=== PATIENT | male | born 1955 | race Caucasian/White ===

== ENCOUNTER 2016-10-19 16:51 | Emergency (ER) | payer BC ==
[~2016-10-19] VITALS: Ht 177.8 cm; Wt 102.1 kg
[~2016-10-19 16:51] MED LIST: FINA5TAB40 PO; HYDR-2164 PO; [UNRECOGNIZED DRUG - CODE]
--- OUTSIDE RECORDS SUMMARY | 2016-10-19 16:58 | XMS REPORT | Referral Summary ---
Author Author [facility] Organization [facility] Address Unknown Phone Unavailable Care Team Providers Care Temporary Data Entry Clerk Name Role Phone Kendall Gonzalez Primary Care Physician [phone] Encounter Date(s): 09/01/15 - 09/01/15 [facility] [address] [place] [address]- Discharge Diagnosis: Bilateral sensorineural hearing loss Discharge Disposition: 01-Home or Self Care Attending Physician: Garcia Yadav MD Admitting Physician: Sonali Jay Referring Physician: Иван Gonzalez MD Vital Signs No data available for this section Problem List Condition Effective Dates Status Health Status Informant Ear Resolved infection(Confirmed) Hearing Active loss(Confirmed) High Resolved cholesterol(Confirme d) Hyperlipidemia(Confi Resolved rmed) Hypertension(Confirm Resolved ed) Kidney Resolved disease/stones(Confi rmed) Enlarged Active prostate(Confirmed) Migraine Resolved headache(Confirmed) Obesity(Confirmed) Active patient Chronic Active insomnia(Confirmed) Pneumonia(Confirmed) Resolved Prostate Resolved cancer(Confirmed) Elevated Active PSA(Confirmed) Seizure Resolved disorder(Confirmed) Skin Resolved problem(Confirmed) Snoring(Confirmed) Active Adjustment Active insomnia(Confirmed) Allergies, Adverse Reactions, Alerts No Known Allergies Medications aspirin 325 mg, Oral, Daily, 0 Refill(s) Start Date: 12/08/13 Status: Ordered Fish Oil 1,000 mg, Oral, Daily, 0 Refill(s) Start Date: 12/08/13 Status: Ordered hydrochlorothiazide 25 mg oral tablet 25 mg 1 tabs, Oral, Daily, # 90 tabs, 2 Refill(s), Pharmacy: [facility] # [id number], 1 tabs Oral Daily,x90 days Start Date: 07/07/15 Stop Date: 04/02/16 Status: Ordered lisinopril 10 mg oral tablet 10 mg 1 tabs, Oral, Daily, # 90 tabs, 2 Refill(s), Pharmacy: [facility] # [id number], 1 tabs Oral Daily,x90 days Start Date: 07/07/15 Stop Date: 04/02/16 Status: Ordered Metamucil Original Texture Regular 1.7 g, Oral, Daily, 0 Refill(s) Start Date: 12/09/13 Status: Ordered multivitamin 1 tabs, Oral, Daily, 0 Refill(s) Start Date: 12/08/13 Status: Ordered Viagra 100 mg oral tablet 1 tabs, Oral, Daily, as needed for erectile dysfunction, 0 Refill(s) Start Date: 12/08/13 Status: Ordered Results No data available for this section Immunizations Vaccine Date Refusal Reason tetanus/diphth/pertuss (Tdap) adult/adol 08/26/06 influenza virus vaccine, inactivated1 03/31/15 influenza virus vaccine, live 04/26/13 influenza virus vaccine, live 05/06/12 pneumococcal 23-polyvalent vaccine 08/26/06 1Location History: [facility] Procedures Procedure Date Related Diagnosis Body Site Colonoscopy -1 08/16/13 Hemorrhoid operation - banding 08/16/13 Colonoscopy 07/03/09 Biopsy of prostate - transrectal needle 10/24/06 Cystoscopy 10/24/06 1Rectal bleeding Internal hemorrhoids Social History Social History Type Response Smoking Status Never smoker Assessment and Plan No data available for this section
--- OUTSIDE RECORDS SUMMARY | 2016-10-19 16:58 | XMS REPORT | Referral Summary ---
Author Author [facility] Organization [facility] Address Unknown Phone Unavailable Care Team Providers Care Stereo Operator Name Role Phone Kendall Gonzlaez Primary Care Physician [phone] Encounter VC Date(s): 12/05/14 - 12/05/14 [facility] [address] [place] [id number] Discharge Disposition: 01-Home or Self Care Attending Physician: Иван Gonzalez MD Admitting Physician: Иван Gonzalez MD Vital Signs Most recent to 1 oldest [Reference Range]: Blood Pressure 140/100 mmHg [90-140/60-90 mmHg] (12/05/14 8:05 AM) Problem List Condition Effective Dates Status Health Status Informant Ear Resolved infection(Confirmed) Hearing Active loss(Confirmed) High Resolved cholesterol(Confirme d) Hyperlipidemia(Confi Resolved rmed) Hypertension(Confirm Resolved ed) Kidney Resolved disease/stones(Confi rmed) Enlarged Active prostate(Confirmed) Migraine Resolved headache(Confirmed) Obesity(Confirmed) Active patient Pneumonia(Confirmed) Resolved Prostate Resolved cancer(Confirmed) Elevated Active PSA(Confirmed) Seizure Resolved disorder(Confirmed) Skin Resolved problem(Confirmed) Adjustment Active insomnia(Confirmed) Allergies, Adverse Reactions, Alerts No Known Allergies Medications aspirin 325 mg, Oral, Daily, 0 Refill(s) Start Date: 12/08/13 Status: Ordered Fish Oil 1,000 mg, Oral, Daily, 0 Refill(s) Start Date: 12/08/13 Status: Ordered hydrochlorothiazide 25 mg oral tablet See Instructions, TAKE ONE TABLET BY MOUTH DAILY NEEDS APPT PRIOR TO ADDITIONAL REFILLS, # 90 tabs, 0 Refill(s), Pharmacy: [facility] #[id number], TAKE ONE TABLET BY MOUTH DAILY; NEEDS APPT PRIOR TO ADDITIONAL REFILLS Start Date: 10/15/15 Status: Ordered lisinopril 10 mg oral tablet 10 mg 1 tabs, Oral, Daily, # 90 tabs, 3 Refill(s), Pharmacy: [facility] # [id number], 1 tabs Oral Daily,x90 days Start Date: 12/05/14 Stop Date: 11/30/15 Status: Ordered Metamucil Original Texture Regular 1.7 g, Oral, Daily, 0 Refill(s) Start Date: 12/09/13 Status: Ordered multivitamin 1 tabs, Oral, Daily, 0 Refill(s) Start Date: 12/08/13 Status: Ordered Viagra 100 mg oral tablet 1 tabs, Oral, Daily, as needed for erectile dysfunction, 0 Refill(s) Start Date: 12/08/13 Status: Ordered Results Hematology Most recent to 1 oldest [Reference Range]: WBC [4.8-10.8 6.9 10*3/uL 10*3/uL] (12/05/14 8:50 AM) RBC [4.60-6.20 5.05 10*6/uL 10*6/uL] (12/05/14 8:50 AM) Hgb [14.0-18.0 15.6 gm/dL gm/dL] (12/05/14 8:50 AM) Hct [42.0-52.0 %] 43.7 % (12/05/14 8:50 AM) MCV [82.0-99.0 fL] 86.5 fL (12/05/14 8:50 AM) MCH [27.0-32.0 pg] 30.9 pg (12/05/14 8:50 AM) MCHC [32.0-36.0 35.7 gm/dL gm/dL] (12/05/14 8:50 AM) RDW [11.5-14.5 %] 12.7 % (12/05/14 8:50 AM) Platelet [150-400 186 10*3/uL 10*3/uL] (12/05/14 8:50 AM) MPV [8.8-14.8 fL] 11.4 fL (12/05/14 8:50 AM) Immature 0.6 % Granulocytes (12/05/14 8:50 AM) [0.0-1.0 %] Neutrophils [51-75 40 % %] *LOW* (12/05/14 8:50 AM) Lymphocytes [20-46 45 % %] (12/05/14 8:50 AM) Monocytes [4-11 %] 10 % (12/05/14 8:50 AM) Eosinophils [0-4 %] 4 % (12/05/14 8:50 AM) Basophils [0-2 %] 0 % (12/05/14 8:50 AM) Neutro Absolute 2.80 10*3 [1.90-7.00 10*3] (12/05/14 8:50 AM) Lymph Absolute 3.10 10*3 [0.80-3.30 10*3] (12/05/14 8:50 AM) [place] Absolute 0.72 10*3 [0.30-1.00 10*3] (12/05/14 8:50 AM) Eos Absolute 0.25 10*3 [0.00-0.50 10*3] (12/05/14 8:50 AM) Baso Absolute 0.03 10*3 [0.00-0.20 10*3] (12/05/14 8:50 AM) Chemistry Most recent to 1 oldest [Reference Range]: Sodium Lvl [135-144 141 mEq/L mEq/L] (12/05/14 8:50 AM) Potassium Lvl 4.3 mEq/L [3.5-5.2 mEq/L] (12/05/14 8:50 AM) Chloride [99-111 104 mEq/L mEq/L] (12/05/14 8:50 AM) CO2 [23-31 mEq/L] 28 mEq/L (12/05/14 8:50 AM) AGAP [3-20] 9 (12/05/14 8:50 AM) BUN [8-26 mg/dL] 20 mg/dL (12/05/14 8:50 AM) Glucose Lvl [70-99 81 mg/dL mg/dL] (12/05/14 8:50 AM) Creatinine Lvl 0.97 mg/dL [0.72-1.25 mg/dL] (12/05/14 8:50 AM) eGFR [>60 mL/min] >60 mL/min 1 (12/05/14 8:50 AM) Calcium Lvl 10.3 mg/dL [8.9-10.5 mg/dL] (12/05/14 8:50 AM) Albumin Lvl [3.5-5.0 4.4 gm/dL gm/dL] (12/05/14 8:50 AM) Total Protein 7.2 gm/dL [6.4-8.3 gm/dL] (12/05/14 8:50 AM) Globulin [1.8-4.0 2.8 gm/dL gm/dL] (12/05/14 8:50 AM) ALT [0-55 U/L] 30 U/L (12/05/14 8:50 AM) AST [5-34 U/L] 28 U/L (12/05/14 8:50 AM) Alk Phos [40-150 67 U/L U/L] (12/05/14 8:50 AM) Bili Total [0.2-1.2 0.8 mg/dL mg/dL] (12/05/14 8:50 AM) PSA (wihout Reflex <0.1 ng/mL 2 Free) [0.0-3.5 (12/05/14 8:50 AM) ng/mL] Hgb A1c [4.1-5.6 %] 5.5 % (12/05/14 8:50 AM) eAvg Glucose 111.2 mg/dL (12/05/14 8:50 AM) 1Result Comment: Multiply eGFR results by 1.21 for race. 2Result Comment: AUA PSA Best Practice Guidelines: Age-Adjusted PSA Values by Ethnic Group Age Range Asians - Caucasians Americans 40-49 0-2.0 0-2.0 0-2.5 50-59 0-3.0 0-4.0 0-3.5 60-69 0-4.0 0-4.5 0-4.5 70-79 0-5.0 0-5.5 0-6.5 Immunizations Vaccine Date Refusal Reason tetanus/diphth/pertuss (Tdap) adult/adol 08/26/06 influenza virus vaccine, inactivated1 03/31/15 influenza virus vaccine, live 04/26/13 influenza virus vaccine, live 05/06/12 pneumococcal 23-polyvalent vaccine 08/26/06 1Location History: [facility] Procedures Procedure Date Related Diagnosis Body Site Collection of venous blood by venipuncture 12/05/14 Colonoscopy -1 08/16/13 Hemorrhoid operation - banding 08/16/13 Colonoscopy 07/03/09 Biopsy of prostate - transrectal needle 10/24/06 Cystoscopy 10/24/06 1Rectal bleeding Internal hemorrhoids Social History Social History Type Response Smoking Status Never smoker Assessment and Plan Extracted from: Title: Ambulatory Patient Education Author: Иван Gonzalez MD Date: Family Medicine Arterial Hypertension Arterial hypertension (high blood pressure ) is a condition of elevated pressure in your blood vessels. Hypertension over a long period of time is a risk factor for strokes, heart attacks, and heart failure. It is also the leading cause of kidney (renal ) failure. CAUSES In Adults -- Over 90% of all hypertension has no known cause. This is called essential or primary hypertension. In the other 10% of people with hypertension, the increase in blood pressure is caused by another disorder. This is called secondary hypertension . Important causes of secondary hypertension are: Heavy alcohol use. Obstructive sleep apnea. Hyperaldosterosim (Conn's syndrome). Steroid use. Chronic kidney failure. Hyperparathyroidism. Medications. Renal artery stenosis. Pheochromocytoma. [place]'s disease. Coarctation of the aorta. Scleroderma renal crisis. Licorice (in excessive amounts). Drugs (cocaine, methamphetamine). Your caregiver can explain any items above that apply to you. In Children -- Secondary hypertension is more common and should always be considered. -- Few women of childbearing age have high blood pressure. However, up to 10% of them develop hypertension of . Generally, this will not harm the woman. It may be a sign of 3 complications of : preeclampsia, HELLP syndrome, and eclampsia. Follow up and control with medication is necessary. SYMPTOMS This condition normally does not produce any noticeable symptoms. It is usually found during a routine exam. Malignant hypertension is a late problem of high blood pressure. It may have the following symptoms: Headaches. Blurred vision. End-organ damage (this means your kidneys, heart, lungs, and other organs are being damaged). Stressful situations can increase the blood pressure. If a person with normal blood pressure has their blood pressure go up while being seen by their caregiver, this is often termed "white coat hypertension." Its importance is not known. It may be related with eventually developing hypertension or complications of hypertension. Hypertension is often confused with mental tension, stress, and anxiety. DIAGNOSIS The diagnosis is made by 3 separate blood pressure measurements. They are taken at least 1 week apart from each other. If there is organ damage from hypertension, the diagnosis may be made without repeat measurements. Hypertension is usually identified by having blood pressure readings: Above 140/90 mmHg measured in both arms, at 3 separate times, over a couple weeks. Over 130/80 mmHg should be considered a risk factor and may require treatment in patients with diabetes. Blood pressure readings over 120/80 mmHg are called "pre-hypertension" even in non-diabetic patients. To get a true blood pressure measurement, use the following guidelines. Be aware of the factors that can alter blood pressure readings. Take measurements at least 1 hour after caffeine. Take measurements 30 minutes after smoking and without any stress. This is another reason to quit smoking it raises your blood pressure. Use a proper cuff size. Ask your caregiver if you are not sure about your cuff size. Most home blood pressure cuffs are automatic. They will measure systolic and diastolic pressures. The systolic pressure is the pressure reading at the start of sounds. Diastolic pressure is the pressure at which the sounds disappear. If you are elderly, measure pressures in multiple postures. Try sitting, lying or standing. Sit at rest for a minimum of 5 minutes before taking measurements. You should not be on any medications like decongestants. These are found in many cold medications. Record your blood pressure readings and review them with your caregiver. If you have hypertension: Your caregiver may do tests to be sure you do not have secondary hypertension (see "causes" above). Your caregiver may also look for signs of metabolic syndrome. This is also called Syndrome X or Insulin Resistance Syndrome. You may have this syndrome if you have type 2 diabetes, abdominal obesity, and abnormal blood lipids in addition to hypertension. Your caregiver will take your medical and family history and perform a physical exam. Diagnostic tests may include blood tests (for glucose, cholesterol, potassium, and kidney function), a urinalysis, or an EKG. Other tests may also be necessary depending on your condition. PREVENTION There are important lifestyle issues that you can adopt to reduce your chance of developing hypertension: Maintain a normal weight. Limit the amount of salt (sodium ) in your diet. Exercise often. Limit alcohol intake. Get enough potassium in your diet. Discuss specific advice with your caregiver. Follow a DASH diet (dietary approaches to stop hypertension). This diet is rich in fruits, vegetables, and low-fat dairy products, and avoids certain fats. PROGNOSIS Essential hypertension cannot be cured. Lifestyle changes and medical treatment can lower blood pressure and reduce complications. The prognosis of secondary hypertension depends on the underlying cause. Many people whose hypertension is controlled with medicine or lifestyle changes can live a normal, healthy life. RISKS AND COMPLICATIONS While high blood pressure alone is not an illness, it often requires treatment due to its short- and long-term effects on many organs. Hypertension increases your risk for: CVAs or strokes (cerebrovascular accident ). Heart failure due to chronically high blood pressure (hypertensive cardiomyopathy ). Heart attack (myocardial infarction ). Damage to the retina (hypertensive retinopathy ). Kidney failure (hypertensive nephropathy ). Your caregiver can explain list items above that apply to you. Treatment of hypertension can significantly reduce the risk of complications. TREATMENT For overweight patients, weight loss and regular exercise are recommended. Physical fitness lowers blood pressure. Mild hypertension is usually treated with diet and exercise. A diet rich in fruits and vegetables, fat-free dairy products, and foods low in fat and salt (sodium ) can help lower blood pressure. Decreasing salt intake decreases blood pressure in a 1/3 of people. Stop smoking if you are a smoker. The steps above are highly effective in reducing blood pressure. While these actions are easy to suggest, they are difficult to achieve. Most patients with moderate or severe hypertension end up requiring medications to bring their blood pressure down to a normal level. There are several classes of medications for treatment. Blood pressure pills (antihypertensives ) will lower blood pressure by their different actions. Lowering the blood pressure by 10 mmHg may decrease the risk of complications by as much as 25%. The goal of treatment is effective blood pressure control. This will reduce your risk for complications. Your caregiver will help you determine the best treatment for you according to your lifestyle. What is excellent treatment for one person, may not be for you. HOME CARE INSTRUCTIONS Do not smoke. Follow the lifestyle changes outlined in the "Prevention" section. If you are on medications, follow the directions carefully. Blood pressure medications must be taken as prescribed. Skipping doses reduces their benefit. It also puts you at risk for problems. Follow up with your caregiver, as directed. If you are asked to monitor your blood pressure at home, follow the guidelines in the "Diagnosis" section above. SEEK MEDICAL CARE IF: You think you are having medication side effects. You have recurrent headaches or lightheadedness. You have swelling in your ankles. You have trouble with your vision. SEEK IMMEDIATE MEDICAL CARE IF: You have sudden onset of chest pain or pressure, difficulty breathing, or other symptoms of a heart attack. You have a severe headache. You have symptoms of a stroke (such as sudden weakness, difficulty speaking , difficulty walking). MAKE SURE YOU: Understand these instructions. Will watch your condition. Will get help right away if you are not doing well or get worse. Document Released: 06/02/2006 Document Revised: 08/24/2012 Document Reviewed: ExitCare Patient Information 2014 [employer]. No follow up information was provided. Extracted from: Title: Office Visit Note Author: Иван Gonzalez MD Date: 12/05/14 Assessment/Plan Adjustment insomnia This issue is stable and appropriate refills, lab, and f/ u have been discussed. Refillambien. Hearing loss To ENT forevaluation of hearing loss. High blood sugar This issue is stable and appropriate refills, lab, and f/u have been discussed. Ordered: CBC w/ Differential Comprehensive Metabolic Panel Hemoglobin A1c Hyperlipidemia This issue is stable and appropriate refills, lab, and f/u have been discussed. Hypertension This issue is stable and appropriate refills, lab, and f/u have been discussed. The patient reports their blood pressure has been stable at home and is not having any significant or related problems. There has been no chest pain, chest pressure, soa/sykes. He may have one year of refills but will need appts for anything further. Prostate cancer This issue is stable and appropriate refills, lab, and f/u have been discussed. PSAs to yearly provided no symptoms/issues develop. He has been recurrence free for five years now. Ordered: Prostate Specific Antigen Orders: lisinopril, 10 mg 1 tabs, Oral, Daily, # 90 tabs, 3 Refill(s), Pharmacy: [facility] #[id number], 1 tabs Oral Daily,x90 days zolpidem, 10 mg 1 tabs, Oral, Bedtime (once a day), as needed for sleep, s. renetta, X 30 days, # 30 tabs, 0 Refill(s)
--- OUTSIDE RECORDS SUMMARY | 2016-10-19 16:58 | XMS REPORT | Referral Summary ---
Author Author [facility] Organization [facility] Address Unknown Phone Unavailable Care Team Providers Care Torch Burner Name Role Phone Kendall Gonzalez Primary Care Physician [phone] Encounter VC Date(s): 12/05/14 - 12/05/14 [facility] [address] [place] [id number] Discharge Disposition: 01-Home or Self Care Attending [...] REFILLS, # 90 tabs, 0 Refill(s), Pharmacy: [facility] #[id number], TAKE ONE TABLET BY MOUTH DAILY; NEEDS APPT PRIOR TO ADDITIONAL REFILLS Start Date: 10/15/15 Status: Ordered lisinopril 10 mg oral tablet 10 mg 1 tabs, Oral, Daily, # 90 tabs, 3 Refill(s), Pharmacy: [facility] # [id number], 1 tabs Oral Daily,x90 days Start Date: [...] 3.10 10*3 [0.80-3.30 10*3] (12/05/14 8:50 AM) [place] Absolute 0.72 10*3 [0.30-1.00 10*3] (12/05/14 8:50 [...] failure. Hyperparathyroidism. Medications. Renal artery stenosis. Pheochromocytoma. [place]'s disease. Coarctation of the aorta. Scleroderma renal [...] 08/24/2012 Document Reviewed: ExitCare Patient Information 2014 [employer]. No follow up information was provided. Extracted [...] Daily, # 90 tabs, 3 Refill(s), Pharmacy: [facility] #[id number], 1 tabs Oral Daily,x90 days zolpidem, 10 mg 1 tabs, Oral, Bedtime (once a day), as needed for sleep, s. renetta, X 30 days, # 30 tabs, 0 Refill(s)
--- OUTSIDE RECORDS SUMMARY | 2016-10-19 16:58 | XMS REPORT | Referral Summary ---
Author Author [facility] Organization [facility] Address Unknown Phone Unavailable Care Team Providers Care Grading Clerk Name Role Phone Kendall Gonzalez Primary Care Physician [phone] Encounter VC Date(s): 01/05/16 - 01/05/16 [facility] [address] [place] [address] Discharge Disposition: 01-Home or Self Care Attending Physician: Иван Gonzalez MD Admitting Physician: Иван Gonzalez MD Vital Signs Most recent to 1 oldest [Reference Range]: Blood Pressure 124/90 mmHg [90-140/60-90 mmHg] (01/05/16 8:22 AM) Problem List Condition Effective Dates Status Health Status Informant Ear Resolved infection(Confirmed) Hearing Active loss(Confirmed) High Resolved cholesterol(Confirme d) Hyperlipidemia(Confi Resolved rmed) Hypertension(Confirm Resolved ed) Kidney Resolved disease/stones(Confi rmed) Enlarged Active prostate(Confirmed) Migraine Resolved headache(Confirmed) Obesity(Confirmed) Active patient Erectile Active dysfunction(Confirme d) Chronic Active insomnia(Confirmed) Pneumonia(Confirmed) Resolved Prostate Resolved [...] 1 tabs, Oral, Daily, # 90 tabs, 1 Refill(s), Pharmacy: [facility] # [id number], 1 tabs Oral Daily,x90 days Start Date: 01/05/16 Stop Date: 1/18/17 Status: Ordered lisinopril 10 mg oral tablet 10 mg 1 tabs, Oral, Daily, # 90 tabs, 2 Refill(s), Pharmacy: [facility] # [id number], 1 tabs Oral Daily,x90 days Start Date: [...] to 1 oldest [Reference Range]: WBC [4.8-10.8 8.0 10*3/uL 10*3/uL] (01/05/16 8:45 AM) RBC [4.60-6.20] 5.12 (01/05/16 8:45 AM) Hgb [14.0-18.0 16.1 gm/dL gm/dL] (01/05/16 8:45 AM) Hct [42.0-52.0 %] 44.4 % (01/05/16 8:45 AM) MCV [82.0-99.0 fL] 86.7 fL (01/05/16 8:45 AM) MCH [27.0-32.0 pg] 31.4 pg (01/05/16 8:45 AM) MCHC [32.0-36.0 36.3 gm/dL gm/dL] *HI* (01/05/16 8:45 AM) RDW [11.5-14.5 %] 13.2 % (01/05/16 8:45 AM) Platelet [150-400 189 10*3/uL 10*3/uL] (01/05/16 8:45 AM) MPV [8.8-14.8 fL] 11.1 fL (01/05/16 8:45 AM) Immature 0.2 % Granulocytes (01/05/16 8:45 AM) [0.0-1.0 %] Neutrophils [51-75 45 % %] *LOW* (01/05/16 8:45 AM) Lymphocytes [20-46 42 % %] (01/05/16 8:45 AM) Monocytes [4-11 %] 9 % (01/05/16 8:45 AM) Eosinophils [0-4 %] 3 % (01/05/16 8:45 AM) Basophils [0-2 %] 0 % (01/05/16 8:45 AM) Neutro Absolute 3.60 10*3 [1.90-7.00 10*3] (01/05/16 8:45 AM) Lymph Absolute 3.39 10*3 [0.80-3.30 10*3] *HI* (01/05/16 8:45 AM) [place] Absolute 0.75 10*3 [0.30-1.00 10*3] (01/05/16 8:45 AM) Eos Absolute 0.27 10*3 [0.00-0.50 10*3] (01/05/16 8:45 AM) Baso Absolute 0.02 10*3 [0.00-0.20 10*3] (01/05/16 8:45 AM) Chemistry Most recent to 1 oldest [Reference Range]: Sodium Lvl [135-144 141 mEq/L mEq/L] (01/05/16 8:45 AM) Potassium Lvl 4.3 mEq/L [3.5-5.2 mEq/L] (01/05/16 8:45 AM) Chloride [99-111 106 mEq/L mEq/L] (01/05/16 8:45 AM) CO2 [23-31 mEq/L] 26 mEq/L (01/05/16 8:45 AM) AGAP [3-20] 9 (01/05/16 8:45 AM) BUN [8-26 mg/dL] 20 mg/dL (01/05/16 8:45 AM) Glucose Lvl [70-99 94 mg/dL mg/dL] (01/05/16 8:45 AM) Creatinine Lvl 1.06 mg/dL [0.72-1.25 mg/dL] (01/05/16 8:45 AM) eGFR [>60 mL/min] >60 mL/min 1 (01/05/16 8:45 AM) Calcium Lvl 9.6 mg/dL [8.9-10.5 mg/dL] (01/05/16 8:45 AM) Albumin Lvl [3.5-5.0 4.5 gm/dL gm/dL] (01/05/16 8:45 AM) Total Protein 7.0 gm/dL 2 [6.0-7.6 gm/dL] (01/05/16 8:45 AM) Globulin [1.8-4.0 2.5 gm/dL gm/dL] (01/05/16 8:45 AM) ALT [0-55 U/L] 26 U/L (01/05/16 8:45 AM) AST [5-34 U/L] 20 U/L (01/05/16 8:45 AM) Alk Phos [40-150 69 U/L U/L] (01/05/16 8:45 AM) Bili Total [0.2-1.2 0.8 mg/dL mg/dL] (01/05/16 8:45 AM) PSA (wihout Reflex <0.1 ng/mL 3 Free) [0.0-3.5 (01/05/16 8:45 AM) ng/mL] Chol [0-199 mg/dL] 193 mg/dL (01/05/16 8:45 AM) Trig [0-149 mg/dL] 214 mg/dL *HI* (01/05/16 8:45 AM) HDL [40-84 mg/dL] 40 mg/dL (01/05/16 8:45 AM) LDL [0-130 mg/dL] 110 mg/dL (01/05/16 8:45 AM) VLDL Cholesterol 43 mg/dL [0-28 mg/dL] *HI* (01/05/16 8:45 AM) Cardiac Risk 4.8 [0.0-5.7] (01/05/16 8:45 AM) Hgb A1c [4.1-5.6 %] 5.4 % (01/05/16 8:45 AM) eAvg Glucose 108.3 mg/dL (01/05/16 8:45 AM) 1Result Comment: Multiply eGFR results by 1.21 for race. 2Result Comment: Please note new reference range for adult Protein. 3Result Comment: AUA PSA Best Practice Guidelines: Age-Adjusted PSA Values by Ethnic Group Age Range Asians - Caucasians Americans 40-49 0-2.0 0-2.0 0-2.5 50-59 0-3.0 0-4.0 0-3.5 60-69 0-4.0 0-4.5 0-4.5 70-79 0-5.0 0-5.5 0-6.5 Urinalysis Most recent to 1 oldest [Reference Range]: UA Color Yellow (01/05/16 8:56 AM) UA Appear Clear (01/05/16 8:56 AM) UA pH [5.0-8.0] 7.0 (01/05/16 8:56 AM) UA Leuk Est Negative [Negative] (01/05/16 8:56 AM) UA Nitrite Negative [Negative] (01/05/16 8:56 AM) UA Protein Negative [Negative] (01/05/16 8:56 AM) UA Glucose Negative [Negative] (01/05/16 8:56 AM) UA Ketones Negative [Negative] (01/05/16 8:56 AM) UA Urobilinogen 0.2 mg/dL [<1.0 mg/dL] (01/05/16 8:56 AM) UA Bili [Negative] Negative (01/05/16 8:56 AM) UA Blood [Negative] Negative (01/05/16 8:56 AM) UA Spec Grav 1.026 [1.003-1.030] (01/05/16 8:56 AM) Type Voided (01/05/16 8:56 AM) Immunizations Vaccine Date Refusal Reason tetanus/diphth/pertuss (Tdap) adult/adol 08/26/06 influenza virus vaccine, inactivated1 03/31/15 influenza virus vaccine, live 04/26/13 influenza virus vaccine, live 05/06/12 pneumococcal 23-polyvalent vaccine 08/26/06 1Location History: [facility] Procedures Procedure Date Related Diagnosis Body Site Collection of venous blood by venipuncture 01/05/16 Colonoscopy -1 08/16/13 Hemorrhoid operation - banding 08/16/13 Colonoscopy 07/03/09 Biopsy of prostate - transrectal needle 10/24/06 Cystoscopy 10/24/06 1Rectal bleeding Internal hemorrhoids Social History Social History Type Response Smoking Status Never smoker Assessment and Plan Extracted from: Title: Ambulatory Patient Education Author: Иван Gonzalez MD Date: Family Medicine Cholesterol Cholesterol is a white, waxy, fat-like substance needed by your body in small amounts. The liver makes all the cholesterol you need. Cholesterol is carried from the liver by the blood through the blood vessels. Deposits of cholesterol ( plaque) may build up on blood vessel saha. These make the arteries narrower and stiffer. Cholesterol plaques increase the risk for heart attack and stroke. You cannot feel your cholesterol level even if it is very high. The only way to know it is high is with a blood test. Once you know your cholesterol levels, you should keep a record of the test results. Work with your health care provider to keep your levels in the desired range. WHAT DO THE RESULTS MEAN? Total cholesterol is a rough measure of all the cholesterol in your blood. LDL is the so-called bad cholesterol. This is the type that deposits cholesterol in the saha of the arteries. You want this level to be low. HDL is the good cholesterol because it cleans the arteries and carries the LDL away. You want this level to be high. Triglycerides are fat that the body can either burn for energy or store. High levels are closely linked to heart disease. WHAT ARE THE DESIRED LEVELS OF CHOLESTEROL? Total cholesterol below 200. LDL below 100 for people at risk, below 70 for those at very high risk. HDL above 50 is good, above 60 is best. Triglycerides below 150. HOW CAN I LOWER MY CHOLESTEROL? Diet. Follow your diet programs as directed by your health care provider. Choose fish or white meat chicken and turkey, roasted or baked. Limit fatty cuts of red meat, fried foods, and processed meats, such as sausage and lunch meats. Eat lots of fresh fruits and vegetables. Choose whole grains, beans, pasta, potatoes, and cereals. Use only small amounts of olive, corn, or canola oils. Avoid butter, mayonnaise, shortening, or palm kernel oils. Avoid foods with trans fats. Drink skim or nonfat milk and eat low-fat or nonfat yogurt and cheeses. Avoid whole milk, cream, ice cream, egg yolks, and full-fat cheeses. Healthy desserts include roderick food cake, dianna snaps, animal crackers, hard candy, popsicles, and low-fat or nonfat frozen yogurt. Avoid pastries, cakes, pies, and cookies. Exercise. Follow your exercise programs as directed by your health care provider. A regular program helps decrease LDL and raise HDL. A regular program helps with weight control. Do things that increase your activity level like gardening, walking, or taking the stairs. Ask your health care provider about how you can be more active in your daily life. Medicine. Take medicine only as directed by your health care provider. Medicine may be prescribed by your health care provider to help lower cholesterol and decrease the risk for heart disease. If you have several risk factors, you may need medicine even if your levels are normal. This information is not intended to replace advice given to you by your health care provider. Make sure you discuss any questions you have with your health care provider. Document Released: 02/25/2002 Document Revised: 06/23/2015 Document Reviewed: [facility] Patient Information 2016 [employer]. No follow up information was provided. Extracted from: Title: Office Visit Note Author: Иван Gonzalez MD Date: 01/05/16 Assessment/Plan Chronic insomnia This issue was reviewed, appears stable, and current therapy continued except as mentioned. Appropriate lab was reviewed from the most recent appropriate entry and lab was ordered if needed in the cpoe/nursing orders, and follow up recommended generally in 90 days and no later then six months. Erectile dysfunction This issue was reviewed, appears stable, and current therapy continued except as mentioned. Appropriate lab was reviewed from the most recent appropriate entry and lab was ordered if needed in the cpoe/nursing orders, and follow up recommended generally in 90 days and no later then six months. High cholesterol This issue was reviewed, appears stable, and current therapy continued except as mentioned. Appropriate lab was reviewed from the most recent appropriate entry and lab was ordered if needed in the cpoe/nursing orders, and follow up recommended generally in 90 days and no later then six months. Lab pending. Hypertension This issue was reviewed, appears stable, and current therapy continued except as mentioned. Appropriate lab was reviewed from the most recent appropriate entry and lab was ordered if needed in the cpoe/nursing orders, and follow up recommended generally in 90 days and no later then six months. The patient reports their blood pressure has been stable at home and is not having any significant or related problems. There has been no chest pain, chest pressure, soa/sykes. Obesity Diet and exercise as tolerated and feasible. Consider medication when interested. Prostate cancer The patient's issue is nearly or completely resolved. There is no further issues or testing desired by them at this time.
--- OUTSIDE RECORDS SUMMARY | 2016-10-19 16:58 | XMS REPORT | Referral Summary ---
Author Author [facility] Organization [facility] Address Unknown Phone Unavailable Care Team Providers Care Flight Crew Scheduler Name Role Phone Kendall Gonzalez Primary Care Physician [phone] Encounter VC Date(s): 12/05/14 - 12/05/14 [facility] [address] [place] [id number] Discharge Disposition: 01-Home or Self [...] REFILLS, # 90 tabs, 0 Refill(s), Pharmacy: [facility] #[id number], TAKE ONE TABLET BY MOUTH DAILY; NEEDS APPT PRIOR TO ADDITIONAL REFILLS Start Date: 10/15/15 Status: Ordered lisinopril 10 mg oral tablet 10 mg 1 tabs, Oral, Daily, # 90 tabs, 3 Refill(s), Pharmacy: [facility] # [id number], 1 tabs Oral Daily,x90 days Start Date: [...] 3.10 10*3 [0.80-3.30 10*3] (12/05/14 8:50 AM) [place] Absolute 0.72 10*3 [0.30-1.00 10*3] (12/05/14 8:50 [...] failure. Hyperparathyroidism. Medications. Renal artery stenosis. Pheochromocytoma. [place] Lion's disease. Coarctation of the aorta. Scleroderma renal [...] 08/24/2012 Document Reviewed: ExitCare Patient Information 2014 [employer] No follow up information was provided. Extracted [...] Daily, # 90 tabs, 3 Refill(s), Pharmacy: [facility] #[id number], 1 tabs Oral Daily,x90 days zolpidem, 10 mg 1 tabs, Oral, Bedtime (once a day), as needed for sleep, s. renetta, X 30 days, # 30 tabs, 0 Refill(s)
--- OUTSIDE RECORDS SUMMARY | 2016-10-19 16:58 | XMS REPORT | Referral Summary ---
Author Author [facility] Organization [facility] Address Unknown Phone Unavailable Care Team Providers Care Animal Caretaker Name Role Phone Kendall Gonzalez Primary Care Physician [phone] Encounter VC Date(s): 07/07/15 - 07/07/15 [facility] [address] [place] [id number] Discharge Disposition: 01-Home or Self Care Attending Physician: Иван Gonzalez MD Admitting Physician: Иван Gonzalez MD Vital Signs Most recent to 1 oldest [Reference Range]: Blood Pressure 130/90 mmHg [90-140/60-90 mmHg] (07/07/15 9:02 AM) Problem List Condition Effective Dates Status [...] Adverse Reactions, Alerts No Known Allergies Medications Ambien CR 12.5 mg oral tablet, extended release 12.5 mg 1 tabs, Oral, Bedtime (once a day), as needed for sleep, SMariusz Flores, X 30 days, # 30 tabs, 0 Refill(s) Start Date: 07/07/15 Stop Date: 08/06/15 Status: Ordered aspirin 325 mg, Oral, Daily, 0 Refill(s) Start Date: 12/08/13 Status: Ordered Fish Oil 1,000 mg, Oral, Daily, 0 Refill(s) Start Date: 12/08/13 Status: Ordered hydrochlorothiazide 25 mg oral tablet 25 mg 1 tabs, Oral, Daily, # 90 tabs, 2 Refill(s), Pharmacy: [facility] # [id number], 1 tabs Oral Daily,x90 days Start Date: 07/07/15 Stop Date: 04/02/16 Status: Ordered lisinopril 10 mg oral tablet 10 mg 1 tabs, Oral, Daily, # 90 tabs, 2 Refill(s), Pharmacy: [facility] # [id number], 1 tabs Oral Daily,x90 days Start Date: [...] Patient Education Author: Иван Gonzalez MD Date: Cardiovascular Dyslipidemia Dyslipidemia is an imbalance of the lipids in your blood. Lipids are waxy, fat- like proteins that your body needs in small amounts. Dyslipidemia often involves the lipids cholesterol or triglycerides. Common forms of dyslipidemia are: High levels of bad cholesterol (LDL cholesterol). LDL cholesterol is the type of cholesterol that causes heart disease. Low levels of good cholesterol (HDL cholesterol). HDL cholesterol is the type of cholesterol that helps protect against heart disease. High levels of triglycerides. Triglycerides are a fatty substance in the blood linked to a buildup of plaque on your arteries. RISK FACTORS Increased age. Having a family history of high cholesterol. Certain medicines, including control pills, diuretics, beta-blockers , and some medicines for depression. Smoking. Eating a high-fat diet. Being overweight. Medical conditions such as diabetes, polycystic ovary syndrome, , kidney disease, and hypothyroidism. Lack of regular exercise. SIGNS AND SYMPTOMS There are no signs or symptoms with dyslipidemia. DIAGNOSIS A simple blood test called a fasting blood test can be done to determine your level of: Total cholesterol. This is the combined number of LDL cholesterol and HDL cholesterol. A healthy number is lower than 200. LDL cholesterol. The goal number for LDL cholesterol is different for each person depending on risk factors. Ask your health care provider what your LDL cholesterol number should be. HDL cholesterol. A healthy level of HDL cholesterol is 60 or higher. A number lower than 40 for men or 50 for women is a danger sign. Triglycerides. A healthy triglyceride number is less than 150. TREATMENT Dyslipidemia is a treatable condition. Your health care provider will advise you on what type of treatment is best based on your age, your test results, and current guidelines. Treatment may include: Dietary changes. A dietitian can help you create a meal plan. You may need to: Eat more foods that contain omega-3s, such as salmon and other fish. Replace saturated fats and trans fats in your diet with healthy fats such as nuts, seeds, avocados, olive oil, and canola oil. Regular exercise. This can help lower your LDL cholesterol, raise your HDL cholesterol, and help with weight management. Check with your health care provider before beginning an exercise program. Most people should participate in 30 minutes of brisk exercise 5 days a week. Quitting smoking. Medicines to lower LDL cholesterol and triglycerides. Your health care provider will monitor your lipid levels with regular blood tests. HOME CARE INSTRUCTIONS Eat a healthy diet. Follow any diet instructions if they were given to you by your health care provider. Maintain a healthy weight. Exercise regularly based on the recommendations of your health care provider. Do not use any tobacco products, including cigarettes, chewing tobacco, or electronic cigarettes. Take medicines only as directed by your health care provider. Keep all follow-up visits as directed by your health care provider. SEEK MEDICAL CARE IF: You are having possible side effects from your medicines. Document Released: 06/07/2014 Document Revised: 10/17/2014 Document Reviewed: ExitCare Patient Information 2015 [employer]. This information is not intended to replace advice given to you by your health care provider. Make sure you discuss any questions you have with your health care provider. No follow up information was provided. Extracted from: Title: Office Visit Note Author: Иван Gonzalez MD Date: 07/07/15 Assessment/Plan Acute URI Meds offered and declined. Chronic insomnia Ambien cr 12.5mg po qhs prn. He may have 30 every 30 days. A work/school note was offered and deferred by the patient. Hyperlipidemia This issue was reviewed, appears stable, and [...] been no chest pain, chest pressure, soa/sykes. Recheck in six months. Migraine headache This issue was reviewed, appears stable, and current therapy continued except as mentioned. Appropriate lab was reviewed from the most recent appropriate entry and lab was ordered if needed in the cpoe/nursing orders, and follow up recommended generally in 90 days and no later then six months. Prostate cancer The patient's issue is nearly or completely resolved. There is no further issues or testing desired by them at this time. Lab reviewed and stable. Discussed rechecking and declined until next visit. No c/os. Seizure disorder The patient's issue is nearly or completely resolved. There is no further issues or testing desired by them at this time. Snoring Stable. No evidence of apnea at this time. Orders: hydrochlorothiazide, 25 mg 1 tabs, Oral, Daily, # 90 tabs, 2 Refill(s) , Pharmacy: [facility] #[id number], 1 tabs Oral Daily,x90 days lisinopril, 10 mg 1 tabs, Oral, Daily, # 90 tabs, 2 Refill(s), Pharmacy: [facility] #[id number], 1 tabs Oral Daily,x90 days zolpidem, 12.5 mg 1 tabs, Oral, Bedtime (once a day), as needed for sleep, [facility], X 30 days, # 30 tabs, 0 Refill(s)
--- OUTSIDE RECORDS SUMMARY | 2016-10-19 16:58 | XMS REPORT | Continuity of Care Document ---
Author Author Jorge Luis Ovalle MD [facility] Address [address] [place] [address] Phone Care Team Providers Care Mine Inspector Federal Name Role Phone Иван Gonzalez PP Unavailable Payers Payer name Insurance type Covered constitution party ID Authorization(s) Unknown Problems Condition Effective Dates (start - stop) Clinical Status Internal hemorrhoids with other complication - *Symptomatic Hypertension, Benign - *Poor control Other and unspecified hyperlipidemia - *Chronic Malignant Neoplasm, Prostate - *Controlled OTHER ABNORMAL GLUCOSE - *Chronic Hypertension, Benign - *Chronic OTHER ABNORMAL GLUCOSE - *Chronic Insomnia, Other - *Chronic Other and unspecified hyperlipidemia - *Chronic Overweight - *Chronic Malignant Neoplasm, Prostate - *Resolved Erectile Dysfunction - *Chronic Hypertension, benign - *Chronic Hyperlipidemia, NOS - *Chronic Insomnia - *Chronic Malignant neoplasm of prostate - *Controlled Ventral hernia - *Chronic Hemorrhage of rectum and anus - *Controlled Other and unspecified hyperlipidemia - *Chronic Other abnormal blood chemistry - *Acute Hypertension, Benign - *Chronic Malignant Neoplasm, Prostate - *Chronic Abdominal pain, epigastric - *Resolved Internal hemorrhoids without mention of complication - *Chronic Diastasis of muscle - *Chronic Hemorrhage of rectum and anus - *Chronic Abnormal blood chemistry - *Chronic Hypertension, benign - *Chronic Insomnia - *Chronic Malignant neoplasm of prostate - *Chronic Erectile dysfunction - *Chronic Plantar fascial fibromatosis - *Chronic Hypertension, Benign - *Chronic Family History Family Member Diagnosis Age At Onset Status Mother (Unknown) Diabetes Yes Father (Unknown) Hypertension Yes Social History Social History Element Description Quantity Unknown Allergies, Adverse Reactions, Alerts Substance Reaction Severity Status Unknown Medications Medication Instructions Dosage Effective Dates (start - stop) Status Viagra 100 mg tablet Take 1 tablet by mouth as needed. - Active aspirin 325 mg tablet take 1 tablet (325MG) by oral route every day 325 MG - Active Fish Oil 1,000 mg capsule take 1 by Oral route every day 0 - Active multivitamin tablet take 1 by Oral route every day 0 - Active Ambien 10 mg tablet Take 1 tablet by mouth at bedtime. - Active hydrochlorothiazide 25 mg tablet Take 1 tablet by mouth every day. 2012 - Active Suprep 17.5 gram-3.13 gram-1.6 gram oral solution Take as directed 2013 - Active lisinopril 20 mg tablet take 1 tablet (20MG) by oral route every day 20 MG - Active Immunizations Vaccine Date Status Comments flu (split) (3 yrs or older) completed - Completed reason: public agency flu (split) (3 yrs or older) completed - Completed reason: public agency Results Test Name Date and Time Measure Units Reference Range Abnormal Flag Comments Unknown Vital Signs Date / Time: Height Weight Pulse Rate Blood Pressure Temperature /08:40:00 70.00 in 213.85 lbs 112/86 mm[Hg] Procedures Procedure Date Unknown Encounters Encounter Location Date Patient Visit [facility] Patient Visit Conversion Patient Visit [facility] Patient Visit [facility] Patient Visit [facility] Patient Visit [facility] Surg Patient Visit [facility] Patient Visit [facility] Patient Visit [facility] Patient Visit [facility] Patient Visit [facility] Patient Visit [facility] Advance Directives Directive Effective Date Unknown
--- OUTSIDE RECORDS SUMMARY | 2016-10-19 16:58 | XMS REPORT | Continuity of Care Document ---
Author Author [facility] Organization [facility] Address Unknown Phone Unavailable Allergies Active Description Code Type Severity Reaction Onset Reported/Identified Relationship to Patient Clinical Status Yes No Known Allergies NKMA N/A N/A 12/05/2014 Medications Problems Procedures Results Test Result Range CBC With Platelet and Differential - 07/08/16 08:37 Absolute Basophils 0.03 10*3/uL 0.00- 0.20 Absolute Eosinophils 0.30 10*3/uL 0.00- 0.50 Absolute Lymphocytes 3.10 10*3/uL 0.80- 3.30 Absolute Monocytes 0.81 10*3/uL 0.30- 1.00 Absolute Neutrophils 3.02 10*3/uL 1.90- 7.00 Basophils 0 % 0-2 Eosinophils 4 % 0-4 HCT 45.0 % 42.0-52.0 HGB 15.6 g/dL 14.0-18.0 Immature Granulocytes 0.3 % 0.0-1.0 Lymphocytes 43 % 20-46 MCH 30.4 pg 27.0-32.0 MCHC 34.7 g/dL 32.0-36.0 MCV 87.7 fL 82.0-99.0 Monocytes 11 % 4-11 MPV 11.3 fL 8.8-14.8 Neutrophils 42 % 51-75 Platelet Count 182 K/uL 150-400 RBC 5.13 10*6/uL 4.60-6.20 RDW 12.8 % 11.5-14.5 WBC 7.3 K/uL 4.8-10.8 Comprehensive Metabolic Panel (CMP) - 07/08/16 08:37 Albumin 4.4 g/dL 3.5-5.0 Alkaline Phosphatase 74 U/L 40-150 ALT (SGPT) 29 U/L 0-55 Anion Gap 9 NA 3-20 AST (SGOT) 24 U/L 5-34 Bilirubin Total 0.5 mg/dL 0.2-1.2 BUN 24 mg/dL 8-26 Calcium 9.7 mg/dL 8.9-10.5 Chloride 105 mEq/L 99-111 CO2 25 mEq/L 23-31 Creatinine 0.99 mg/dL 0.72-1.25 Globulin 2.5 g/dL 1.8-4.0 Glucose 96 mg/dL 70-99 Potassium 4.2 mEq/L 3.5-5.2 Protein 6.9 g/dL 6.0-7.6 Sodium 139 mEq/L 135-144 Lipid Panel - 07/08/16 08:37 Cardiac Risk 4.9 0.0-5.7 Cholesterol 190 mg/dL 0-199 HDL Cholesterol 39 mg/dL 40-84 LDL Cholesterol 97 mg/dL 0-130 Triglycerides 268 mg/dL 0-149 VLDL Cholesterol 54 mg/dL 0-28 eGFR - 07/08/16 08:37 eGFR >60 mL/min >60 Urinalysis with reflex microscopic - 07/08/16 08:50 Appearance Clear NA Bilirubin Negative NA Negative Blood Negative NA Negative Color Yellow NA Glucose, Urine Negative Negative Ketones Negative Negative Leukocyte Esterase Negative NA Negative Nitrites Negative NA Negative pH 6.0 NA 5.0-8.0 Protein Negative Negative Specific [place] 1.022 NA 1.003-1.030 UA Collection type Voided NA Urobilinogen 1.0 mg/dL <1.0 Encounters ACCT No. Visit Date/Time Discharge Status Pt. Type Provider Facility Loc./Unit Complaint [id number] 08/06/2013 08:40:00 08/06/2013 23 :59:59 [facility] Outpatient
--- OUTSIDE RECORDS SUMMARY | 2016-10-19 16:59 | XMS REPORT | Referral Summary ---
Author Author [facility] Organization [facility] Address Unknown Phone Unavailable Care Team Providers Care Marketing Coordinator Name Role Phone Kendall Gonzalez Primary Care Physician [phone] Encounter VC Date(s): 12/05/14 - 12/05/14 [facility] [address] [place] [address] Discharge Disposition: [...] REFILLS, # 90 tabs, 0 Refill(s), Pharmacy: [facility] #[id number], TAKE ONE TABLET BY MOUTH DAILY; NEEDS APPT PRIOR TO ADDITIONAL REFILLS Start Date: 10/15/15 Status: Ordered lisinopril 10 mg oral tablet 10 mg 1 tabs, Oral, Daily, # 90 tabs, 3 Refill(s), Pharmacy: [facility] # [id number], 1 tabs Oral Daily,x90 days Start Date: [...] 3.10 10*3 [0.80-3.30 10*3] (12/05/14 8:50 AM) [place] Absolute 0.72 10*3 [0.30-1.00 10*3] (12/05/14 8:50 [...] failure. Hyperparathyroidism. Medications. Renal artery stenosis. Pheochromocytoma. [place]'s disease. Coarctation of the aorta. Scleroderma renal [...] 08/24/2012 Document Reviewed: ExitCare Patient Information 2014 [employer]. No follow up information was provided. Extracted [...] Daily, # 90 tabs, 3 Refill(s), Pharmacy: [facility] #[id number], 1 tabs Oral Daily,x90 days zolpidem, 10 mg 1 tabs, Oral, Bedtime (once a day), as needed for sleep, s. renetta, X 30 days, # 30 tabs, 0 Refill(s)
--- OUTSIDE RECORDS SUMMARY | 2016-10-19 16:59 | XMS REPORT | Referral Summary ---
Author Author [facility] Organization [facility] Address Unknown Phone Unavailable Care Team Providers Care Drainlayer Name Role Phone Kendall Gonzalez Primary Care Physician [phone] Encounter VC Date(s): 12/05/14 - 12/05/14 [facility] [address] [place] [address] Discharge Disposition: 01-Home or Self [...] REFILLS, # 90 tabs, 0 Refill(s), Pharmacy: [facility] #[id number], TAKE ONE TABLET BY MOUTH DAILY; NEEDS APPT PRIOR TO ADDITIONAL REFILLS Start Date: 10/15/15 Status: Ordered lisinopril 10 mg oral tablet 10 mg 1 tabs, Oral, Daily, # 90 tabs, 3 Refill(s), Pharmacy: [facility] # [id number], 1 tabs Oral Daily,x90 days Start Date: [...] 3.10 10*3 [0.80-3.30 10*3] (12/05/14 8:50 AM) [place] Absolute 0.72 10*3 [0.30-1.00 10*3] (12/05/14 8:50 [...] failure. Hyperparathyroidism. Medications. Renal artery stenosis. Pheochromocytoma. [place]'s disease. Coarctation of the aorta. Scleroderma renal [...] 08/24/2012 Document Reviewed: ExitCare Patient Information 2014 [employer]. No follow up information was provided. Extracted [...] Daily, # 90 tabs, 3 Refill(s), Pharmacy: [facility] #[id number], 1 tabs Oral Daily,x90 days zolpidem, 10 mg 1 tabs, Oral, Bedtime (once a day), as needed for sleep, s. renetta, X 30 days, # 30 tabs, 0 Refill(s)
--- OUTSIDE RECORDS SUMMARY | 2016-10-19 16:59 | XMS REPORT | Referral Summary ---
Author Author [facility] Organization [facility] Address Unknown Phone Unavailable Care Team Providers Care Light Armored Vehicle Officer Name Role Phone Kendall Gonzalez Primary Care Physician [phone] Encounter Date(s): 01/11/16 - 01/11/16 [facility] [address] [place] [address]- Discharge Diagnosis: Bilateral sensorineural hearing loss Discharge Disposition: 01-Home or Self Care Attending Physician: Mike Stout MD Admitting Physician: Mike Stout MD Vital Signs No data available for [...] Daily, # 90 tabs, 1 Refill(s), Pharmacy: [facility] # [id number], 1 tabs Oral Daily,x90 days Start Date: 01/05/16 Stop Date: 07/03/16 Status: Ordered lisinopril 10 mg oral tablet 10 mg 1 tabs, Oral, Daily, # 90 tabs, 2 Refill(s), Pharmacy: [facility] # [id number], 1 tabs Oral Daily,x90 days Start Date: [...] 05/06/12 pneumococcal 23-polyvalent vaccine 08/26/06 [facility] Procedures Procedure Date Related Diagnosis Body Site Colonoscopy -1 08/16/13 Hemorrhoid operation - banding 08/16/13 Colonoscopy 07/03/09 Biopsy of prostate - transrectal needle 10/24/06 Cystoscopy 10/24/06 1Rectal bleeding Internal hemorrhoids Social History Social History Type Response Smoking Status Never smoker Assessment and Plan No data available for this section
--- OUTSIDE RECORDS SUMMARY | 2016-10-19 16:59 | XMS REPORT | Referral Summary ---
Author Author [facility] Organization [facility] Address Unknown Phone Unavailable Care Team Providers Care Elderly Caregiver Name Role Phone Kendall Gonzalez Primary Care Physician [phone] Encounter VC Date(s): 12/05/14 - 12/05/14 [facility] [address] [place] [address] Discharge Disposition: 01-Home or Self [...] REFILLS, # 90 tabs, 0 Refill(s), Pharmacy: [facility] #[id number], TAKE ONE TABLET BY MOUTH DAILY; NEEDS APPT PRIOR TO ADDITIONAL REFILLS Start Date: 10/15/15 Status: Ordered lisinopril 10 mg oral tablet 10 mg 1 tabs, Oral, Daily, # 90 tabs, 3 Refill(s), Pharmacy: [facility] # [id number], 1 tabs Oral Daily,x90 days Start Date: [...] 3.10 10*3 [0.80-3.30 10*3] (12/05/14 8:50 AM) [place] Absolute 0.72 10*3 [0.30-1.00 10*3] (12/05/14 8:50 [...] failure. Hyperparathyroidism. Medications. Renal artery stenosis. Pheochromocytoma. [place]'s disease. Coarctation of the aorta. Scleroderma renal [...] 08/24/2012 Document Reviewed: ExitCare Patient Information 2014 [employer]. No follow up information was provided. Extracted [...] Refill(s), Pharmacy: [facility] #[id number], 1 tabs Oral Daily,x90 days zolpidem, 10 mg 1 tabs, Oral, Bedtime (once a day), as needed for sleep, s. renetta, X 30 days, # 30 tabs, 0 Refill(s)
--- OUTSIDE RECORDS SUMMARY | 2016-10-19 16:59 | XMS REPORT | Referral Summary ---
Author Author [facility] Organization [facility] Address Unknown Phone Unavailable Care Team Providers Care Suction Drum Drier Operator Name Role Phone Kendall Gonzalez Primary Care Physician [phone] Encounter VC Date(s): 12/05/14 - 12/05/14 [facility] [address] [place] [address] Discharge Disposition: 01-Home or Self Care Attending [...] REFILLS, # 90 tabs, 0 Refill(s), Pharmacy: [facility] #[id number], TAKE ONE TABLET BY MOUTH DAILY; NEEDS APPT PRIOR TO ADDITIONAL REFILLS Start Date: 10/15/15 Status: Ordered lisinopril 10 mg oral tablet 10 mg 1 tabs, Oral, Daily, # 90 tabs, 3 Refill(s), Pharmacy: [facility] # [id number], 1 tabs Oral Daily,x90 days Start Date: [...] 3.10 10*3 [0.80-3.30 10*3] (12/05/14 8:50 AM) [place] Absolute 0.72 10*3 [0.30-1.00 10*3] (12/05/14 8:50 [...] failure. Hyperparathyroidism. Medications. Renal artery stenosis. Pheochromocytoma. [place]'s disease. Coarctation of the aorta. Scleroderma renal [...] 08/24/2012 Document Reviewed: ExitCare Patient Information 2014 [employer]. No follow up information was provided. Extracted [...] Daily, # 90 tabs, 3 Refill(s), Pharmacy: [facility] #[id number], 1 tabs Oral Daily,x90 days zolpidem, 10 mg 1 tabs, Oral, Bedtime (once a day), as needed for sleep, s. renetta, X 30 days, # 30 tabs, 0 Refill(s)
--- OUTSIDE RECORDS SUMMARY | 2016-10-19 16:59 | XMS REPORT | Referral Summary ---
Author Author [facility] Organization [facility] Address Unknown Phone Unavailable Care Team Providers Care Certified Wellness Program Coordinator Name Role Phone Kendall Gonzalez Primary Care Physician [phone] Encounter [facility] [id number] Date(s): 02/14/15 - 02/14/15 [facility] [address] [place], [place] [address] Discharge Diagnosis: Tinnitus Discharge Diagnosis: Epistaxis Discharge Diagnosis: SNHL (sensorineural hearing loss) Discharge Diagnosis: Deviated septum Discharge Disposition: 01-Home or Self Care Attending Physician: Garcia Yadav MD Admitting Physician: Garcia Yadav MD Referring Physician: Иван Gonzalez MD Vital Signs [...] Daily, # 90 tabs, 2 Refill(s), Pharmacy: [facility] # [id number], 1 tabs Oral Daily,x90 days Start Date: 07/07/15 Stop Date: 04/02/16 Status: Ordered lisinopril 10 mg oral tablet 10 mg 1 tabs, Oral, Daily, # 90 tabs, 2 Refill(s), Pharmacy: [facility] # [id number], 1 tabs Oral Daily,x90 days Start Date: [...] 05/06/12 pneumococcal 23-polyvalent vaccine 08/26/06 1Location History: [facility] Procedures Procedure Date Related Diagnosis Body Site Nasal endoscopy, diagnostic, unilateral or 02/14/15 bilateral (separate procedure).. Nasal/sinus endoscopy, surgical; with control 02/14/15 of nasal hemorrhage Colonoscopy -1 08/16/13 Hemorrhoid operation - banding 08/16/13 Colonoscopy 07/03/09 Biopsy of prostate - transrectal needle 10/24/06 Cystoscopy 10/24/06 1Rectal bleeding Internal hemorrhoids Social History Social History Type Response Smoking Status Never smoker Assessment and Plan Extracted from: Title: Office Visit Note Author: Garcia Yadav MD Date: 02/14/15 Assessment/Plan 1.SNHL (sensorineural hearing loss) I explained to the patient the nature of sensorineural hearing loss and associated sensorineural tinnitus. The are several management strategies we discussed, including avoiding hypertension, reducing or eliminating caffeine intake and reducing overall stress levels. I did offer the patient the option of using an over the counter medication ( Lipoflavanoid) to see if it reduces the tinnitus symptoms. This medication seems to help about 50% of the time. Prescription drug therapy was discussed as an option if the condition becomes more intractable. There is no significant role for surgery to treat this condition. The option of a tinnitus masker or hearing aid was also discussed with the patient. He will contact Sonali directly for a hearing aid trial. He is to use Kinzers saline gel in the nose for the cauterization site. 2.Tinnitus 3.Epistaxis 4.Deviated septum
--- OUTSIDE RECORDS SUMMARY | 2016-10-19 16:59 | XMS REPORT | Referral Summary ---
Author Author [facility] Organization [facility] Address Unknown Phone Unavailable Care Team Providers Care Senior Materials Planner Name Role Phone Kendall Gonzalez Primary Care Physician [phone] Encounter VC Date(s): 12/05/14 - 12/05/14 [facility] [address] [place] [address] Discharge Disposition: 01-Home or [...] REFILLS, # 90 tabs, 0 Refill(s), Pharmacy: [facility] #[id number], TAKE ONE TABLET BY MOUTH DAILY; NEEDS APPT PRIOR TO ADDITIONAL REFILLS Start Date: 10/15/15 Status: Ordered lisinopril 10 mg oral tablet 10 mg 1 tabs, Oral, Daily, # 90 tabs, 3 Refill(s), Pharmacy: [facility] # [id number], 1 tabs Oral Daily,x90 days Start Date: [...] 3.10 10*3 [0.80-3.30 10*3] (12/05/14 8:50 AM) [place] Absolute 0.72 10*3 [0.30-1.00 10*3] (12/05/14 [...] failure. Hyperparathyroidism. Medications. Renal artery stenosis. Pheochromocytoma. [place]'s disease. Coarctation of the aorta. Scleroderma renal [...] 08/24/2012 Document Reviewed: ExitCare Patient Information 2014 [employer]. No follow up information was provided. Extracted [...] Daily, # 90 tabs, 3 Refill(s), Pharmacy: [facility] #[id number], 1 tabs Oral Daily,x90 days zolpidem, 10 mg 1 tabs, Oral, Bedtime (once a day), as needed for sleep, s. renetta, X 30 days, # 30 tabs, 0 Refill(s)
--- OUTSIDE RECORDS SUMMARY | 2016-10-19 16:59 | XMS REPORT | Referral Summary ---
Author Author [facility] Organization [facility] Address Unknown Phone Unavailable Care Team Providers Care Ic Design Manager Name Role Phone Kendall Gonzalez Primary Care Physician [phone] Encounter Date(s): 07/08/16 - 07/08/16 [facility] [address] [place] [address] Discharge Diagnosis: Hypertension Discharge Diagnosis: Obesity Discharge Diagnosis: Chronic insomnia Discharge Diagnosis: Hyperlipidemia Discharge Diagnosis: Prostate cancer Discharge Disposition: 01-Home or Self Care Attending Physician: Иван Gonzalez MD Admitting Physician: Иван Gonzalez MD Vital Signs Most recent to 1 oldest [Reference Range]: Blood Pressure 110/80 mmHg [90-140/60-90 mmHg] (07/08/16 8:10 AM) Problem List Condition Effective Dates Status [...] 0 Refill(s) Start Date: 12/08/13 Status: Ordered hydroCHLOROthiazide 25 mg oral tablet 25 mg 1 tabs, Oral, Daily, # 90 tabs, 1 Refill(s), Pharmacy: [facility] # [id number], 1 tabs Oral Daily,x90 days Start Date: 07/08/16 Stop Date: 01/04/17 Status: Ordered lisinopril 10 mg oral tablet 10 mg 1 tabs, Oral, Daily, # 90 tabs, 1 Refill(s), Pharmacy: [facility] # [id number], 1 tabs Oral Daily,x90 days Start Date: 07/08/16 Stop Date: 01/04/17 Status: Ordered Metamucil Original Texture Regular 1.7 g, Oral, Daily, 0 Refill(s) Start Date: 12/09/13 Status: Ordered multivitamin 1 tabs, Oral, Daily, 0 Refill(s) Start Date: 12/08/13 Status: Ordered Viagra 100 mg oral tablet 1 tabs, Oral, Daily, as needed for erectile dysfunction, 0 Refill(s) Start Date: 12/08/13 Status: Ordered Results Hematology Most recent to 1 oldest [Reference Range]: WBC [4.8-10.8 7.3 10*3/uL 10*3/uL] (07/08/16 8:37 AM) RBC [4.60-6.20] 5.13 (07/08/16 8:37 AM) Hgb [14.0-18.0 15.6 gm/dL gm/dL] (07/08/16 8:37 AM) Hct [42.0-52.0 %] 45.0 % (07/08/16 8:37 AM) MCV [82.0-99.0 fL] 87.7 fL (07/08/16 8:37 AM) MCH [27.0-32.0 pg] 30.4 pg (07/08/16 8:37 AM) MCHC [32.0-36.0 34.7 gm/dL gm/dL] (07/08/16 8:37 AM) RDW [11.5-14.5 %] 12.8 % (07/08/16 8:37 AM) Platelet [150-400 182 10*3/uL 10*3/uL] (07/08/16 8:37 AM) MPV [8.8-14.8 fL] 11.3 fL (07/08/16 8:37 AM) Immature 0.3 % Granulocytes (07/08/16 8:37 AM) [0.0-1.0 %] Neutrophils [51-75 42 % %] *LOW* (07/08/16 8:37 AM) Lymphocytes [20-46 43 % %] (07/08/16 8:37 AM) Monocytes [4-11 %] 11 % (07/08/16 8:37 AM) Eosinophils [0-4 %] 4 % (07/08/16 8:37 AM) Basophils [0-2 %] 0 % (07/08/16 8:37 AM) Neutro Absolute 3.02 [1.90-7.00] (07/08/16 8:37 AM) Lymph Absolute 3.10 [0.80-3.30] (07/08/16 8:37 AM) [place] Absolute 0.81 [0.30-1.00] (07/08/16 8:37 AM) Eos Absolute 0.30 [0.00-0.50] (07/08/16 8:37 AM) Baso Absolute 0.03 [0.00-0.20] (07/08/16 8:37 AM) Chemistry Most recent to 1 oldest [Reference Range]: Sodium Lvl [135-144 139 mEq/L mEq/L] (07/08/16 8:37 AM) Potassium Lvl 4.2 mEq/L [3.5-5.2 mEq/L] (07/08/16 8:37 AM) Chloride [99-111 105 mEq/L mEq/L] (07/08/16 8:37 AM) CO2 [23-31 mEq/L] 25 mEq/L (07/08/16 8:37 AM) AGAP [3-20] 9 (07/08/16 8:37 AM) BUN [8-26 mg/dL] 24 mg/dL (07/08/16 8:37 AM) Glucose Lvl [70-99 96 mg/dL mg/dL] (07/08/16 8:37 AM) Creatinine Lvl 0.99 mg/dL [0.72-1.25 mg/dL] (07/08/16 8:37 AM) eGFR [>60 mL/min] >60 mL/min 1 (07/08/16 8:37 AM) Calcium Lvl 9.7 mg/dL [8.9-10.5 mg/dL] (07/08/16 8:37 AM) Albumin Lvl [3.5-5.0 4.4 gm/dL gm/dL] (07/08/16 8:37 AM) Total Protein 6.9 gm/dL [6.0-7.6 gm/dL] (07/08/16 8:37 AM) Globulin [1.8-4.0 2.5 gm/dL gm/dL] (07/08/16 8:37 AM) ALT [0-55 U/L] 29 U/L (07/08/16 8:37 AM) AST [5-34 U/L] 24 U/L (07/08/16 8:37 AM) Alk Phos [40-150 74 U/L U/L] (07/08/16 8:37 AM) Bili Total [0.2-1.2 0.5 mg/dL mg/dL] (07/08/16 8:37 AM) Chol [0-199 mg/dL] 190 mg/dL (07/08/16 8:37 AM) Trig [0-149 mg/dL] 268 mg/dL *HI* (07/08/16 8:37 AM) HDL [40-84 mg/dL] 39 mg/dL *LOW* (07/08/16 8:37 AM) LDL [0-130 mg/dL] 97 mg/dL (07/08/16 8:37 AM) VLDL Cholesterol 54 mg/dL [0-28 mg/dL] *HI* (07/08/16 8:37 AM) Cardiac Risk 4.9 [0.0-5.7] (07/08/16 8:37 AM) 1Result Comment: Multiply eGFR results by 1.21 for race. Urinalysis Most recent to 1 oldest [Reference Range]: UA Color Yellow (07/08/16 8:50 AM) UA Appear Clear (07/08/16 8:50 AM) UA pH [5.0-8.0] 6.0 (07/08/16 8:50 AM) UA Leuk Est Negative [Negative] (07/08/16 8:50 AM) UA Nitrite Negative [Negative] (07/08/16 8:50 AM) UA Protein Negative [Negative] (07/08/16 8:50 AM) UA Glucose Negative [Negative] (07/08/16 8:50 AM) UA Ketones Negative [Negative] (07/08/16 8:50 AM) UA Urobilinogen 1.0 mg/dL [<1.0 mg/dL] (07/08/16 8:50 AM) UA Bili [Negative] Negative (07/08/16 8:50 AM) UA Blood [Negative] Negative (07/08/16 8:50 AM) UA Spec Grav 1.022 [1.003-1.030] (07/08/16 8:50 AM) Type Voided (07/08/16 8:50 AM) Immunizations Given and Recorded Vaccine Date Status Refusal Reason tetanus/diphth/pertuss (Tdap) adult/adol 08/26/06 Recorded influenza virus vaccine, inactivated1 03/31/15 Recorded influenza virus vaccine, live 04/26/13 Given influenza virus vaccine, live 05/06/12 Given pneumococcal 23-polyvalent vaccine 08/26/06 Recorded 1Location History: [facility] Procedures Procedure Date Related Diagnosis Body Site Collection of venous blood by venipuncture 07/08/16 Colonoscopy -1 08/16/13 Hemorrhoid operation - banding [...] cholesterol. Certain medicines, including control pills, diuretics, beta- blockers, and some medicines for depression. Smoking. Eating [...] Treatment may include: Dietary changes. A dietitian may help you create a diet that is based on your risk factors, conditions, and lifestyle. Regular exercise. This can help lower your LDL cholesterol, raise your HDL cholesterol, and help with weight management. Check with your health care provider before beginning an exercise program. Most people should participate in 30 minutes of brisk exercise 5 days a week. Quitting smoking. Medicines to lower LDL cholesterol and triglycerides. If you have high levels of triglycerides, your health care provider may: Have you stop drinking alcohol. Have you restrict your fat intake. Have you eliminate refined sugars from your diet. Treat you for other conditions, such as underactive thyroid gland ( hypothyroidism) and high blood sugar (hyperglycemia). Your health care provider will monitor your [...] having possible side effects from your medicines. This information is not intended to replace advice given to you by your health care provider. Make sure you discuss any questions you have with your health care provider. Document Released: 06/07/2014 Document Revised: 06/23/2015 Document Reviewed: [employer] Interactive Patient Education 2016 [employer] No follow up information was provided. Extracted from: Title: Office Visit Note Author: Иван Gonzalez MD Date: 07/08/16 Assessment/Plan Chronic insomnia We discussed several options for treatment for this condition. The patient declined any changes or other treatments at this time. Using otc meds. Hyperlipidemia This issue was reviewed, appears stable, and current therapy continued except as mentioned. Appropriate lab was reviewed from the most recent appropriate entry and lab was ordered if needed in the cpoe/nursing orders, and follow up recommended generally in 90 days and no later then six months. Lab pending. Ordered: Lipid Panel Hypertension This issue was reviewed, appears stable, [...] been no chest pain, chest pressure, soa/sykes. The patient had an elevated blood pressure reading and is to monitor their bp and call with a report if consistently > 140/90. Ordered: CBC w/ Differential Comprehensive Metabolic Panel Urinalysis with Culture if Indicated Obesity Diet and exercise as tolerated and feasible. Consider medication when interested. Prostate cancer The patient's issue is nearly or completely resolved. There is no further issues or testing desired by them at this time. Discussed lab and declined for now. A work/school note was offered and deferred by the patient.
--- OUTSIDE RECORDS SUMMARY | 2016-10-19 16:59 | XMS REPORT | Referral Summary ---
Author Author [facility] Organization [facility] Address Unknown Phone Unavailable Care Team Providers Care Sticker Hand Name Role Phone Kendall Gonzalez Primary Care Physician [phone] Encounter Date(s): 07/31/15 - 07/31/15 [facility] [address] [place] [address]- Discharge Diagnosis: Bilateral sensorineural hearing loss Discharge Disposition: 01-Home or Self Care Attending Physician: Garcia Yadav MD Admitting Physician: Sonali Jay Referring Physician: Garcia Yadav MD Vital Signs No data available for [...] a day), as needed for sleep, [facility], X 30 days, # 30 tabs, 0 Refill(s) Start Date: 07/07/15 Stop Date: 08/06/15 Status: Ordered aspirin 325 mg, Oral, Daily, 0 Refill(s) Start Date: 12/08/13 Status: Ordered Fish Oil 1,000 mg, Oral, Daily, 0 Refill(s) Start Date: 12/08/13 Status: Ordered hydrochlorothiazide 25 mg oral tablet 25 mg 1 tabs, Oral, Daily, # 90 tabs, 2 Refill(s), Pharmacy: [facility] # [id number], 1 tabs Oral Daily,x90 days Start Date: 07/07/15 Stop Date: 04/02/16 Status: Ordered lisinopril 10 mg oral tablet 10 mg 1 tabs, Oral, Daily, # 90 tabs, 2 Refill(s), Pharmacy: [facility] # [id number], 1 tabs Oral Daily,x90 days Start Date: [...]
--- OUTSIDE RECORDS SUMMARY | 2016-10-19 16:59 | XMS REPORT | Referral Summary ---
Author Author [facility] Organization [facility] Address Unknown Phone Unavailable Care Team Providers Care Planer Offbearer Name Role Phone Kendall Gonzalez Primary Care Physician [phone] Encounter VC Date(s): 12/05/14 - 12/05/14 [facility] [address] [place] [id number] Discharge Disposition: 01-Home or Self Care [...] REFILLS, # 90 tabs, 0 Refill(s), Pharmacy: [facility] #[id number], TAKE ONE TABLET BY MOUTH DAILY; NEEDS APPT PRIOR TO ADDITIONAL REFILLS Start Date: 10/15/15 Status: Ordered lisinopril 10 mg oral tablet 10 mg 1 tabs, Oral, Daily, # 90 tabs, 3 Refill(s), Pharmacy: [facility] # [id number], 1 tabs Oral Daily,x90 days Start Date: [...] 3.10 10*3 [0.80-3.30 10*3] (12/05/14 8:50 AM) [place] Absolute 0.72 10*3 [0.30-1.00 10*3] (12/05/14 8:50 [...] failure. Hyperparathyroidism. Medications. Renal artery stenosis. Pheochromocytoma. Elrosa's disease. Coarctation of the aorta. Scleroderma renal [...] 08/24/2012 Document Reviewed: ExitCare Patient Information 2014 [employer]. No follow up information was provided. Extracted [...] Daily, # 90 tabs, 3 Refill(s), Pharmacy: [facility] #[id number], 1 tabs Oral Daily,x90 days zolpidem, 10 mg 1 tabs, Oral, Bedtime (once a day), as needed for sleep, s. renetta, X 30 days, # 30 tabs, 0 Refill(s)
--- OUTSIDE RECORDS SUMMARY | 2016-10-19 16:59 | XMS REPORT | Referral Summary ---
Author Author [facility] Organization [facility] Address Unknown Phone Unavailable Care Team Providers Care Director Of Photography Name Role Phone Kendall Gonzalez Primary Care Physician [phone] Encounter Date(s): 08/04/15 - 08/04/15 [facility] [address] [place] [address]- Discharge Diagnosis: Bilateral sensorineural hearing loss Discharge Disposition: 01-Home or Self Care Attending Physician: Garcia Yadav MD Admitting Physician: Garcia Yadav MD Vital Signs No [...] # 90 tabs, 2 Refill(s), Pharmacy: [facility] # [id number], 1 tabs Oral Daily,x90 days Start Date: 07/07/15 Stop Date: 04/02/16 Status: Ordered lisinopril 10 mg oral tablet 10 mg 1 tabs, Oral, Daily, # 90 tabs, 2 Refill(s), Pharmacy: [facility] # [id number], 1 tabs Oral Daily,x90 days Start Date: [...]
[2016-10-19 17:08] VITALS: Ht 177.8 cm; Wt 102.1 kg
--- NOTE | 2016-10-19 17:15 | NUR ---
PROVIDER DR. KLINE AT BEDSIDE FOR EXAM.
--- NOTE | 2016-10-19 17:21 | ERPDOC ---
Departure Disposition Decision Date: October 19, 2016 Disposition Decision Time: 17:55 Disposition: 01 DISCHARGED HOME, SELF-CARE Impression Impression Impression: Primary Impression: Left fibular fracture Encounter type: initial encounter Fibula location: distal Fracture type: closed Fracture morphology: other fracture Qualified Codes: S82.832A - Other fracture of upper and lower end of left fibula, initial encounter for closed fracture Severity: Moderate Condition: Improved Seen By: Physician only Referrals: YUDY SIFUENTES MD (Family) 1 Week PHOEBE VARNER MD 2 Days Patient Instructions: Ankle Fracture (ED) Problems/Meds/Labs Reviewed?: Yes Medications reviewed and manag: Yes Additional Instructions: You have broken your ankle. Keep your leg in the boot and do not bear weight in your boot. Use the crutches whenever you are up/around. Follow up with Dr. Varner on Friday at 1300. Take tylenol and motrin as needed for pain; use the norco for severe pain, especially at night. Follow up care ordered?: Yes Mental Status: Alert, Oriented Scripts Hydrocodone/Acetaminophen (Henning 5-325 Tablet) 5-325 Tablet 1 TAB PO Q6HR Y for PAIN, #20 TAB 0 Refills Prov: OCTOBERGIOVANY DO 10/19/16 HPI General Chief Complaint: Lower Extremity Injury Stated Complaint: FELL L ANKLE PAIN Time Seen by Provider: 16:55 Source: patient Exam Limitations: no limitations HPI Foot/Ankle Initial Comments 60yo man presents to the ER today for left ankle pain. Pt was working in his garden today, when he tripped over an implement. Now has pain and swelling over his lateral malleolus. Occurred At: home Onset: Rapid Duration: 1-3 hrs Pain Scale: Now: 1/10, Worst: 4/10 Severity: moderate Location: left: ankle 1 - TTP Method of Injury: fell, twisted Modifying Factors: IMPROVES WITH: immobilization, WORSE WITH: jarring, movement Associated Symptoms: pain with standing, redness, swelling, DENIES: bruising, red streaks Allergies: Coded Allergies: NKDA (Unverified Allergy, Unknown, 10/19/16) Past History Past Medical History Metabolic: hypertension Male: BPH Vaccines Hx Influenza Vaccination: No Hx Pneumococcal Vaccination: No Review of Systems Musculoskeletal General: joint pain, joint swelling All other Systems All Other Systems: Reviewed and Negative Exam General General Nourishment: well nourished, well developed, appears stated age, no acute distress, adult, obese General Body Habitus: well groomed Vital Signs: RN Vital Signs have been reviewed: Yes Fastrak Foot/Ankle Foot/Ankle : Leg: Left Leg: NOT FOUND: contusion, discoloration, swelling, tender Ankle: swelling (Over lateral malleolus), tender lat. malleolus, NOT FOUND: achilles tendon insertion, anterior drawer sign, decreased ROM, deformity, ecchymosis, foot drop, numbness, tender lat. foot, tender med. malleolus, tender mid foot, weakness Foot: NOT FOUND: numbness, tender 1st MTP joint, tender plantar fascia Toes: cap refill <2 sec ea toe, NOT FOUND: decreased ROM, deformity, ecchymosis, erythema, nail avulsion, subungual hematoma Posterior Tibial Pulse: 2+ Dorsalis Pedis Pulse: 2+ Neurologic RN Documented GCS Eye Opening: Verbal: Motor: Total: Supervisory Exam Head: atraumatic Eyes: PERRL Nares: no exudate Neck: trachea midline Chest: symmetric Abdomen: non-distended Neurological: no abnormal movements Skin: pink, dry Psychological: alert, appropriate Differential Diagnoses Considering: Contusion, Dislocation, Fracture, Lisfranc's Fracture, Sprain, Strain Progress Results/Orders Orders Medications Current ED Medications Ketorolac Tromethamine (Toradol) 60 mg O ONCE IM Last administered on 17:30; Start 10/19/16 at 17:30; Stop 10/19/16 at 17:31; Status DC Acetaminophen/ Hydrocodone Bitart (NORCO 5 (PrePack)) 1 pack O ONCE SENT HOME Last administered on 10/19/16 18:23; Start 10/19/16 at 18:00; Stop 10/19/16 at 18: 01; Status DC Progress Progress Pt with fibular fx. Will place in boot and provide with crutches. F/u with Dr. Varner at 1300 on Friday. Pt voiced understanding of dx, prognosis, tx, and need for f/u with PCM. Consult/PCP Consult/PCP : Physician Contacted: Dr. Varner Time Called: 17:40 Time of first response: 17:45 Type of discussion: Phone Consult/PCP Discussion Details Will review films and call back. Place pt in boot or post slab. Toe-touch if boot; no weight if slab. F/u on Friday at 1300. Xray Xray : Xray: Ankle L Interpretation: Abnormal (Comminuted, left, distal fibular fx), Interpreted by GIOVANY Sheldon DO October 19, 2016 17:21 Time of first response: 17:45 Type of discussion: Phone Consult/PCP Discussion Details Will review films and call back. Place pt in boot or post slab. Toe-touch if boot; no weight if slab. F/u on Friday at 1300. Xray Xray : Xray: Ankle L Interpretation: Abnormal (Comminuted, left, distal fibular fx), Interpreted by GIOVANY Sheldon DO October 19, 2016 17:21
[2016-10-19] MEDS ORDERED: FISH1CAP2 PO (17:27)
[2016-10-19] MEDS ORDERED: LISI-621 PO (17:27)
[2016-10-19] MEDS ORDERED: KETOROLAC 60mg/2ml INJECTION IM ONE (17:30)
--- NOTE | 2016-10-19 17:31 | NUR ---
XRAY PORTABLE XRAY AT BEDSIDE.
--- OUTSIDE RECORDS SUMMARY | 2016-10-19 17:34 | XMS REPORT | Continuity of Care Document ---
Author Author [facility] Organization [facility] Address Unknown Phone Unavailable Allergies Active Description [...] 6.0 NA 5.0-8.0 Protein Negative Negative Specific [place] 1.022 NA 1.003-1.030 UA Collection type Voided NA Urobilinogen 1.0 mg/dL <1.0 Encounters ACCT No. Visit Date/Time Discharge Status Pt. Type Provider Facility Loc./Unit Complaint [id number] 08/06/2013 08:40:00 08/06/2013 23 :59:59 [facility] Outpatient
[2016-10-19] MEDS ORDERED: HYDR-4246 PO (17:58)
[2016-10-19] MEDS ORDERED: HYDROCODONE/APAP 5/325 (PrePack) SENT HOME ONE (18:00)
--- NOTE | 2016-10-19 18:01 | NUR ---
PROVIDER DR. KLINE AT BEDSIDE TO SPEAK WITH PT.
[2016-10-19 18:23] VITALS: BP 118/77; PULSE 78; RESP 18; TEMP 98.8; O2SAT 98
--- NOTE | 2016-10-19 18:23 | NUR ---
DISCHARGE WRITTEN INSTRUCTIONS WITH [facility]CO [facility] REVIEWED AND SENT WITH PT. PT VERBALIZES UNDERSTANDING OF DI AND MEDICAITON, DENIES QUESTIONS. REPORTS PAIN 06/25 AFTER TORADOL ADM. PT AMBULATES OUT OF ER WITH STEADY GAIT USING CRUTCHES ACCOMP BY SPOUSE AT THIS TIME.
--- NOTE | 2016-10-20 08:38 | DI ---
Indication: ITS.REASON: Trip/fall; pain over lateral malleolus PROCEDURE: ANKLE LEFT 3 VIEW: Encounter: Initial Comparison: None Findings: Oblique nondisplaced spiral fracture of the distal fibula. No additional acute fracture or dislocation seen. Impression: Closed posttraumatic distal fibular fracture. .
== END 2016-10-19 18:23 | disposition home or self-care (01) ==
LOC: ED 16:51
DX: S82.832A Other fracture of upper and lower end of left fibula, initial encounter for closed fracture (principal); W01.0XXA Fall on same level from slipping, tripping and stumbling without subsequent striking against object, initial encounter; Y93.H2 Activity, gardening and landscaping; Y92.007 Garden or yard of unspecified non-institutional (private) residence as the place of occurrence of the external cause; Y99.8 Other external cause status
CPT/HCPCS: 73610; 96372; 99283; J1885